=== PATIENT | male | born 1955 | race Caucasian/White ===

== ENCOUNTER 2024-08-05 16:14 | Outpatient (CLI) | payer MEDICARE, OTHER, SELFPAY ==
[2024-08-05 16:47] LABS: Basophils % 0.6 % (0.1-2.0); Eosinophils # 0.2 K/mm3 (0.0-0.4); Eosinophils % 3.6 % (0.1-12.0); Hematocrit 43.6 % (42.0-52.0); Hemoglobin 14.7 g/dL (14.1-18.0); Lymphocytes # 1.6 K/mm3 (0.7-4.5); Lymphocytes % 36.2 % (10-50); Mean Corpuscular HGB Conc 33.9 g/dL (31.8-35.4); Mean Corpuscular Hemoglobin 32.3 pg (27.0-31.2); Mean Corpuscular Volume 95.4 fl (80-94); Mean Platelet Volume 8.1 fl (7.4-10.4); Monocytes # 0.3 K/mm3 (0.1-1.0); Monocytes % 7.6 % (1.7-9.3); Neutrophils # 2.3 K/mm3 (1.8-7.8); Platelet Count 165 K/mm3 (142-424); Red Blood Count 4.56 M/mm3 (4.60-6.20); Red Cell Distribution Width 13.9 % (11.5-17.5); White Blood Count 4.5 K/mm3 (4.8-10.8)
[2024-08-05 17:09] LABS: Albumin Level 4.6 g/dl (3.5-5.0); Chloride 108 mmol/L (98-107); Sodium 143 mmol/L (136-145)
[2024-08-05 17:10] LABS: Potassium 4.4 mmoL/L (3.5-5.1)
[2024-08-05 17:12] LABS: Alanine Aminotransferase 58 U/L (12-78); Albumin/Globulin Ratio 1.7 (1.1-1.8); Anion Gap 13.4 mEq/L (5-15); Aspartate Amino Transferase 34 U/L (17-59); Blood Urea Nitrogen 26 mg/dl (9-20); Carbon Dioxide 26 mmol/L (22.0-30.0); Estimated Glomerular Filt Rate 75 ml/min (>60); GFR (African American) 90 ML/MIN (>60); Globulin 2.7 g/dL (1.3-3.2); Total Protein,Serum 7.3 g/dl (6.3-8.2)
[2024-08-05 17:13] LABS: Alkaline Phosphatase 51 U/L (38-126); Bilirubin,Total 0.6 mg/dl (0.2-1.3); Cholesterol 152 mg/dl (140-200); Glucose 122 mg/dl (74-100); HDL Cholesterol 38 mg/dl (40-60); Triglycerides 207 mg/dl (30-150); VLDL Cholesterol 41 mg/dL (0-40)
[2024-08-05 17:24] LABS: Direct LDL Cholesterol 71.91 mg/dL (100-129)
== END 2024-08-05 23:59 | disposition home or self-care (01) ==
LOC: LAB 16:18
PROVIDERS: PCP Internal Medicine; Visit Provider Internal Medicine
DX: R03.0 Elevated blood-pressure reading, without diagnosis of hypertension (principal); E78.5 Hyperlipidemia, unspecified
CPT/HCPCS: 36415; 80053; 80061; 85025

== ENCOUNTER 2024-09-02 14:10 | Outpatient (CLI) | payer MEDICARE, OTHER, SELFPAY ==
--- NOTE | 2024-09-02 14:12 | US_ITS ---
FINAL REPORT CLINICAL HISTORY: UTI COMPARISON: None FINDINGS: BLADDER ULTRASOUND: Pre and post void images of the bladder were obtained. The bladder measures 208 cc at capacity, with a postvoid residual of 128.3 cc, consistent with a moderate postvoid residual. No focal bladder mass is identified. Ureteral jets are seen. No significant prostate enlargement is identified. IMPRESSION: Moderate postvoid residual as described above. Reviewed, Interpreted and Dictated by Kamlesh Alberts III, MD Transcribed by Marjorie Askew Authenticated and [facility]
== END 2024-09-02 23:59 | disposition home or self-care (01) ==
LOC: RAD 14:12
PROVIDERS: PCP Internal Medicine; Visit Provider Urology
DX: N40.1 Benign prostatic hyperplasia with lower urinary tract symptoms (principal)
CPT/HCPCS: 76857

== ENCOUNTER 2024-11-05 08:30 | Day surgery (SDC) | payer MEDICARE, OTHER, SELFPAY ==
[2024-11-03 11:29] VITALS: BMI 37.6
[2024-11-05 08:52] VITALS: BP 152/85; PULSE 62; RESP 18; TEMP 36.2; O2SAT 99
[2024-11-05] MEDS: LIDOCAINE 2% UROJET 10ML 10 ML (09:20)
--- NOTE | 2024-11-05 09:21 | HMH.PROCNOTE ---
[facility] Procedure Note Date: 11/05/24 Time: 09:21 Procedure Note:: Chart review: The patient complains of bladder outlet obstruction. He is on Flomax. His postvoid residual urine is elevated at 128 on 09/12. He has nocturia x 2-4. He underwent Remer ablation of the prostate in 2023. The results are questionable to him. He is here for cystoscopy to further evaluate bladder outlet obstructio Preop diagnosis: Bladder outlet obstruction Postop diagnosis: Bladder outlet obstruction Operative note: The patient was brought to the cystoscopy suite he was prepped and draped using the clean technique. He underwent flexible cystoscopy. His anterior urethra is unremarkable. From the level of the verumontanum the patient has prostate obstruction grade 2. The bladder neck, however, with the surgery mentioned above is open. About two thirds of the prostatic urethra remains obstructed and contributes to his complaints. The bladder itself is finely trabeculated throughout. The bladder wall is [place] pink in color throughout. There is no evidence of bladder stone tumor hemorrhage or infection. The ureteral orifice ease are normal bilaterally with clear E flux of urine. The patient tolerated the procedure well. He is not emptying his bladder to completion so he might want to consider further prostate surgery.
[2024-11-05] MEDS: 0.9 % SODIUM CHLORIDE 1000ML 1,000 ML 999 ML IV (09:25)
[2024-11-05 09:30] VITALS: BP 141/93; PULSE 69; RESP 18; TEMP 36.1; O2SAT 100
== END 2024-11-05 09:40 | disposition home or self-care (01) ==
PROVIDERS: PCP Internal Medicine; Visit Provider Urology
PROC: 0TJB8ZZ Inspection of Bladder, Via Natural or Artificial Opening Endoscopic (ICD-10-PCS; CPT 52000; principal; 2024-11-05 09:30)
DX: N13.8 Other obstructive and reflux uropathy (principal); R35.1 Nocturia
CPT/HCPCS: 52000; J7030

== ENCOUNTER 2025-01-24 13:59 | Outpatient (CLI) | payer MEDICARE, OTHER, SELFPAY ==
[2025-01-25 08:12] LABS: PSA, Free 0.55 ng/mL; Prostate Specific Ag 1.6 ng/mL (0.0-4.0)
== END 2025-01-24 23:59 | disposition home or self-care (01) ==
LOC: LAB 14:00
PROVIDERS: PCP Internal Medicine; Visit Provider Urology
DX: R97.20 Elevated prostate specific antigen [PSA] (principal)
CPT/HCPCS: 36415; 84153; 84154

== ENCOUNTER 2025-05-02 14:13 | Outpatient (CLI) | payer MEDICARE, OTHER, SELFPAY ==
--- OUTSIDE RECORDS SUMMARY | 2025-05-02 13:07 | XMS_ITS | Continuity of Care Document ---
Author Name [facility] Organization [facility] Care Team Providers Care Annealer Helper Name Role Phone [facility] Unavailable Unavailable Problems Combined list of problems from Department of Defense and Veterans Affairs facilities. It does not include entries that were removed or entered in error. 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 DoD Vaccines Prophylactic Need Against Viral Diseases Inactive Condition DoD visit for: laboratory Inactive Condition DoD visit for: screening exam lipoid disorders Inactive Condition DoD visit for: screening exam malignant neoplasm prostate Inactive Condition DoD visit for: screening exam infectious diseases viral Inactive Condition DoD visit for: screening exam sickle-cell disease / trait Inactive Condition DoD Vaccines Prophylactic Need Against Bacterial Diseases Inactive Condition DoD visit for: ears / hearing exam Active Condition DoD visit for: services physical in-theatre Active Condition DoD visit for: screening exam cardiovascular disorders Active Condition DoD Vaccines Prophylactic Need Against Influenza Inactive Condition DoD ASSESSMENT OF PATIENT CONDITION WORK-RELATED Active Condition DoD visit for: screening exam Active Condition DoD visit for: occupational health / fitness exam Active Condition DoD BLEPHARITIS LEFT EYE Active Condition DoD visit for: administrative purpose Active Condition DoD visit for: services physical Active Condition pt cleared for mobilization . DoD Vaccines Prophylactic Need Against Td Active Condition DoD visit for: screening exam pulmonary tuberculosis Active Condition DoD Need For Vaccination Hepatitis B Active Condition DoD visit for: screening exam viral disease Active Condition DoD Administrative Evaluation Services Active Condition DoD Allergies, Adverse Reactions, Alerts Combined list of allergies from Department of Defense and Veterans Affairs facilities. It does not include entries that were removed or entered in error. Substance Category Reaction Severity Reaction type Status Date Reported Comments Source IODINE (IODINE) Drug allergy (disorder) Unknown active 01/29/2006 [facility] [place] Immunizations Combined list of available immunizations from the Department of Defense and Veterans Affairs facilities. Immunization Series Date Given Administered By Site Reaction Lot Number CVX Code Drug Senior Ui Developer Status Comments Source zoster vaccine, live 1 2011 Unknown, Provider [id number] Merck (MSD) complet ed zoster vaccine, live DoD anthrax vaccine 8 2011 [id number] [facility] complet ed anthrax vaccine DoD Influenza, seasonal, injectable, preservative free 1 2011 [id number] Unknown (UNK) comple t ed Influenza , seasonal, injectabl e, preservat carlos enrique free DoD influenza virus vaccine, whole virus 1 2010 FARHANA DUMONT [id number] 16 [employer], [employer]. (CS) complet ed influenza virus vaccine, whole virus DoD influenza virus vaccine, split virus (incl. purified surface antigen)-reti red CODE 1 2008 [id number] 15 Unknown (UNK) complet ed influenza virus vaccine, split virus (incl. purified surface antigen)- retired CODE DoD influenza virus vaccine, split virus (incl. purified surface antigen)-reti red CODE 1 2008 [id number] 15 Unknown (UNK) complet ed influenza virus vaccine, split virus (incl. purified surface antigen)- retired CODE DoD anthrax vaccine [id number] [facility] ([facility]) complet ed anthrax vaccine DoD hepatitis B vaccine, adult dosage 3 2008 [id number] 43 SmithKline (SKB) complet ed hepatitis B vaccine, adult dosage DoD hepatitis B vaccine, adult dosage 2 2007 [id number] 43 [employer] (SKB) complet ed hepatitis B vaccine, adult dosage DoD tetanus toxoid, reduced diphtheria toxoid, and acellular pertu is vaccine, adsorbed 1 2007 [id number] Sanofi Pasteur (PMC) complet ed tetanus toxoid, reduced diphtheri a toxoid, and acellular pertussis vaccine, adsorbed DoD hepatitis B vaccine, adult dosage 1 2006 [id number] 43 SmithKline (SKB) complet ed hepatitis B vaccine, adult dosage DoD influenza virus vaccine, live, attenuated, for intranasal use 1 2006 [id number] [employer]. (MED) complet ed influenza virus vaccine, live, attenuate d, for intranasa l use DoD anthrax vaccine 6 2005 [id number] [facility]) complet ed anthrax vaccine DoD anthrax vaccine 5 2003 UNK 24 Unknown (UNK) comple t ed anthrax vaccine DoD anthrax vaccine 4 2003 UNK 24 Unknown (UNK) comple t ed anthrax vaccine DoD influenza virus vaccine, split virus (incl. purified surface antigen)-reti red CODE 1 2003 UNK 15 Unknown (UNK) comple t ed influenza virus vaccine, split virus (incl. purified surface antigen)- retired CODE DoD hepatitis A vaccine, adult dosage 2 2003 UNK 52 Unknown (UNK) comple t ed hepatitis A vaccine, adult dosage DoD anthrax vaccine 3 2002 UNK 24 Unknown (UNK) comple t ed anthrax vaccine DoD anthrax vaccine 2 2002 UNK 24 Unknown (UNK) comple t ed anthrax vaccine DoD influenza virus vaccine, split virus (incl. purified surface antigen)-reti red CODE 0 2002 UNK 15 Sanofi Pasteur ([facility]) complet ed influenza virus vaccine, split virus (incl. purified surface antigen)- retired CODE DoD anthrax vaccine [id number] [facility] ([facility]) complet ed anthrax vaccine DoD meningococcal polysaccharid e vaccine (MPSV4) 0 2002 [id number] 32 Sanofi Pasteur ([facility]) complet ed meningoco ccal polysacch aride vaccine (MPSV4) DoD yellow fever vaccine 0 2002 [id number] Sanofi Pasteur ([facility]) complet ed yellow fever vaccine DoD typhoid Vi capsular polysaccharid e vaccine 0 2002 [id number] Sanofi Pasteur ([facility]) complet ed typhoid Vi capsular polysacch aride vaccine DoD hepatitis A vaccine, adult dosage 1 1998 UNK 52 Unknown (UNK) comple t ed hepatitis A vaccine, adult dosage DoD measles, mumps and rubella virus vaccine 0 1997 UNK 03 Unknown (UNK) comple t ed measles, mumps and rubella virus vaccine DoD tetanus and diphtheria toxoids, adsorbed, preservative free, for adult use (2 Lf of tetanus toxoid and 2 Lf of diphtheria toxoid) 0 1997 UNK 09 Unknown (UNK) comple t ed tetanus and diphtheri a toxoids, adsorbed, preservat carlos enrique free, for adult use (2 Lf of tetanus toxoid and 2 Lf of diphtheri a toxoid) DoD poliovirus vaccine, inactivated 0 1997 UNK 10 Unknown (UNK) comple t ed polioviru s vaccine, inactivat ed DoD Encounters Combined list of: 1) Encounters from Department of Veterans Affairs facilities going backup to the last 18 months, not all VA inpatient encounters are included; 2) Encounters from the Department of Defense facilities going backup to 280 months. Location Location Details Encounter Type Encounter Number Reason For Visit Attending Provider ADM Date DC Date Status Disposition Source [facility] IRR/SRP) OUTPATIENT [id number] IRR INES BURNS 06/13 Released w/o Limitations [employer]([facility] IRR/SRP ) [employer]([facility] H Irr/Immun ization) OUTPATIENT [id number] imms ZANA MUNOZ 06/13 Released w/o Limitations [employer]([facility] Irr/Imm unizati on) [employer]([facility] H Irr/Immun ization) OUTPATIENT [id number] imm ZANA MUNOZ 06/15 Released w/o Limitations [facility] Irr/Imm unizati on) [facility] [place]([facility]) OUTPATIENT [id number] SKYLER WOO 08/08 Released w/o Limitations [facility] [place]([facility]) [facility] [place]) OUTPATIENT [id number] ANDREZ MUNROE 09/05 Released w/o Limitations [facility] [place]([facility]) [employer] [facility] IRR/SRP) OUTPATIENT [id number] IRR/RET CIARRA MULLEN 08/07 Released w/o Limitations [employer]([facility] IRR/SRP ) [employer]([facility] IRR/SRP) OUTPATIENT [id number] LUCINDA Garzon 08/07 Released w/o Limitations [facility] IRR/SRP ) [facility](EKG ) OUTPATIENT [id number] SAMPSON GROVES 08/07 Released w/o Limitations [employer](E KG) [employer]([facility] Physical Exam) OUTPATIENT [id number] OVER 42/IRR SHARLA GONZALEZ 08/10 Released w/o Limitations [employer](R MC Physica l Exam) [facility](C Ambulator y) OUTPATIENT [id number] EMILIAXI MCGREGOR Benjamin 08/10 Released w/o Limitations [employer](T MC Ambulat ory) [facility] C IRR/SRP) OUTPATIENT [id number] FOLLOW UP/RET/ IRR MARYEVELIN HOLDEN Mariscal 08/10 Released w/o Limitations [employer](M [facility] IRR/SRP ) [employer]AD[employer] Jose([employer]P-Pr e&Post Deploymen t) OUTPATIENT [id number] Notes Entered by: TOBIN JACINTO 28 Jul 2012 1415 ------- ------- ------- ------- -- [employer] UPDATE DAVION ZUNIGA 07/28 Released w/o Limitations [employer] Jose(MRP- Pre&Pos t Deploym ent) MADAN Jose(SRP-He aring Conservat ion) OUTPATIENT [id number] Notes Entered by: KAEL DELAROSA 28 Jul 2012 1503 ------- ------- ------- ------- -- Hearing test KAEL DELAROSA 07/28 Released w/o Limitations [employer] Jose(SRP- Hearing Conserv ation) MADAN Jose([facility]-Im munizatio ns) OUTPATIENT [id number] Notes Entered by: ANGELIQUE THOMPSON 28 Jul 2012 1604 ------- ------- ------- ------- -- HERE FOR IMMUNIZ ATIONS MICHELLE THOMPSON 07/28 Released w/o Limitations [employer] Jose(MRP- Immuniz ations) [employer]AD[employer] Jose(MRP-Im munizatio ns) OUTPATIENT [id number] Notes Entered by: ANGELIQUE THOMPSON 30 Jul 2012 0907 ------- ------- ------- ------- -- HERE FOR LABS MICHELLE THOMPSON 07/30 Released w/o Limitations [employer] Jose(MRP- Immuniz ations) [facility]) OUTPATIENT [id number] RENAE MARAVILLA 07/30 Released w/o Limitations [facility]) [facility] Jose(Immuni zation Clinic) OUTPATIENT [id number] Notes Entered by: BERNA YANCEY 31 Jul 2012 0813 ------- ------- ------- ------- -- ROSITA Matute 07/31 Released w/o Limitations [employer] Jose(Immu nizatio n Clinic) Procedures Combined list of: 1) Procedures from Department of Veterans Affairs facilities going back up to thelast 18 months, not all VA non-surgical procedures are included; 2) All procedures from the Department of Defense facilities. Procedure Procedure Type Code Date Perfomer Comments Sourc e SKIN TEST; TUBERCULOSIS, TIN E TEST 03/11/2003 [facility] YELLOW FEVER VACCINE, LIVE, FOR SUBCUTANEOUS USE 11/03/2002 [facility] ELECTROCARDIOGRAM, ROUTINE ECG WITH AT LEAST 12 LEADS; WITH INTERPRETATION AND REPORT 08/07/2009 [facility] INFLUENZA VIRUS VACCINE, TRIVALENT (IIV3), SPLIT VIRUS, 0.5 ML DOSAGE, FOR INTRAMUSCULAR USE 08/07/2009 [facility] VIS FUNCT SCREEN,AUTOMAT/SEMI-AUTOMAT BILAT QUANT DETERM VISUAL ACUITY,OCULAR ALIGN,COLOR VISION,PSEUDOISOCHROMAT PLATES,& FIELD VIS (MAY INC ALL/SOME SCRN DETERM FOR CONTRAST SENSITIV,VIS UND GLARE) 08/07/2009 DoD TETANUS, DIPHTHERIA TOXOIDS AND ACELLULAR PERTUSSIS VACCINE (TDAP), WHEN ADMINISTERED TO INDIVIDUALS 7 YEARS OR OLDER, FOR INTRAMUSCULAR USE 06/13/2008 [facility] COLLECTION OF VENOUS BLOOD B Y VENIPUNCTURE 06/13/2008 DoD HEALTH AND BEHAVIOR ASSESS (EG, HEALTH-FOC CLIN INTERVIEW, BEHAVIORAL OBSERVATIONS, PSYCHOPHYSICOLOGICAL MON, HEALTH-ORIENTED QUESTIONNAIRES), EACH 15 MIN [id number] WITH THE PATIENT; RE-ASSESS 02/14/2003 [facility] PSYCHOLOGICAL TESTING (INCLUDES PSYCHODIAGNOSTIC ASSESSMENT OF PERSONALITY PSYCHOPATHOLOGY, EMOTIONALITY, INTELLECTUAL ABILITIES, EG, WAIS-R, RORSCHACH, MMPI) WITH INTERPRETATION AND REPORT, PER HOUR 02/07/2003 DoD INTERPRETATION OR EXPLANATIO N OF RESULTS OF PSYCHIATRIC, OTH MEDICAL EXAMS/PROCEDURES, OR OTH ACCUMULATED DATA TO FAMILY OR OTH RESPONSIBLE PERSONS,OR ADVISING THEM HOW TO ASSIST PATIENT 02/07/2003 DoD IMMUNIZATION ADMINISTRATION (INCLUDES PERCUTANEOUS, INTRADERMAL, SUBCUTANEOUS, OR INTRAMUSCULAR INJECTIONS); 1 VACCINE (SINGLE OR COMBINATION VACCINE/TOXOID) 07/31/2012 DoD FITTING OF SPECTACLES, EXCEP T FOR APHAKIA; MONOFOCAL 07/30/2012 Do D INFLUENZA VIRUS VACCINE, TRIVALENT (IIV3), SPLIT VIRUS, 0.5 ML DOSAGE, FOR INTRAMUSCULAR USE 07/28/2012 DoD AUDIOMETRIC TESTING OF GROUPS 07/28/2012 DoD IMMUNIZATION ADMINISTRATION (INCLUDES PERCUTANEOUS, INTRADERMAL, SUBCUTANEOUS, OR INTRAMUSCULAR INJECTIONS); 1 VACCINE (SINGLE OR COMBINATION VACCINE/TOXOID) 06/15/2009 DoD PURE TONE AUDIOMETRY (THRESHOLD); AIR ONLY 06/15/2009 DoD INDIVIDUAL PSYCHOTHERAPY, INSIGHT ORIENTED, BEHAVIOR MODIFYING AND/OR SUPPORTIVE, IN AN OFFICE OR OUTPATIENT FACILITY, APPROXIMATELY 20 TO 30 MINUTES [id number] WITH THE PATIENT 05/29/2009 DoD IMMUNIZATION ADMINISTRATION (INCLUDES PERCUTANEOUS, INTRADERMAL, SUBCUTANEOUS, OR INTRAMUSCULAR INJECTIONS); EACH ADDITIONAL VACCINE (SINGLE OR COMBINATION VACCINE/TOXOID) 02/14/2009 DoD OSTEOPATHIC MANIPULATIVE TREATMENT (OMT); 1-2 BODY REGIONS INVOLVED 02/07/2006 DoD OSTEOPATHIC MANIPULATIVE TREATMENT (OMT); 7-8 BODY REGIONS INVOLVED 02/04/2006 [facility] PHYSICAL THERAPY RE-EVALUATION 05/24/2004 DoD REMOVAL OF SUTURES UNDER ANESTHESIA (OTHER THAN LOCAL), SAME SURGEON 05/24/2004 [facility] ARTHROSCOPY OF KNEE 05/17/2004 D oD THERAPEUTIC PROCEDURE, 1 OR MORE AREAS, EACH 15 MINUTES; THERAPEUTIC EXERCISES TO DEVELOP STRENGTH AND ENDURANCE, RANGE OF MOTION AND FLEXIBILITY 05/17/2004 DoD THERAPEUTIC PROCEDURE, 1 OR MORE AREAS, EACH 15 MINUTES; GAIT TRAINING (INCLUDES STAIR CLIMBING) 05/14/2004 DoD ELECTROCARDIOGRAM, ROUTINE ECG WITH AT LEAST 12 LEADS; WITH INTERPRETATION AND REPORT 05/14/2004 DoD Social History Combined list of available smoking, tobacco, and other social history from Department of Defense and Veterans Affairs facilities. Social History Type Response Date Comment Sourc e This section is an empty social history section. DoD
[2025-05-03 12:13] LABS: Testosterone,Total 362 ng/dL (264-916)
== END 2025-05-02 23:59 | disposition home or self-care (01) ==
LOC: LAB 14:14
PROVIDERS: PCP Internal Medicine; Visit Provider Urology
DX: N40.1 Benign prostatic hyperplasia with lower urinary tract symptoms (principal); R53.83 Other fatigue; N32.81 Overactive bladder; N13.8 Other obstructive and reflux uropathy
CPT/HCPCS: 36415; 84270; 84403

== ENCOUNTER 2025-06-08 14:10 | Outpatient (CLI) | payer MEDICARE, OTHER, SELFPAY ==
--- OUTSIDE RECORDS SUMMARY | 2025-06-08 13:11 | XMS_ITS | Continuity of Care Document ---
Author Name [facility] Organization [facility] Care Team Providers Care Claims Investigator Name Role Phone [facility] Unavailable Unavailable Problems [...] Site Reaction Lot Number CVX Code Drug Disc Pad Grinding Machine Feeder Status Comments Source zoster vaccine, live 1 2011 Unknown, Provider [id number] Merck (MSD) complet ed zoster vaccine, live DoD anthrax vaccine 8 2011 [id number] [facility] ([place]) complet ed anthrax vaccine DoD Influenza, seasonal, injectable, preservative free 1 2011 [id number] Unknown (UNK) comple t ed Influenza , seasonal, injectabl e, preservat carlos enrique free DoD influenza virus vaccine, whole virus 1 2010 FARHANA DUMONT [id number] 16 [employer]. (CS) complet ed influenza virus vaccine, whole virus DoD influenza virus vaccine, split virus (incl. purified surface antigen)-reti red CODE 1 2008 [id number] 15 Unknown (UNK) complet ed influenza virus vaccine, split virus (incl. purified surface antigen)- retired CODE DoD influenza virus vaccine, split virus (incl. purified surface antigen)-reti red CODE 1 2008 [id number] 15 Unknown (UNK) complet ed influenza virus vaccine, split virus (incl. purified surface antigen)- retired CODE DoD anthrax vaccine 7 2008 [id number] 24 [facility] ([place]) complet ed anthrax vaccine DoD hepatitis B vaccine, adult dosage 3 2008 [id number] 43 [employer]Kline (SKB) complet ed hepatitis B vaccine, adult dosage DoD hepatitis B vaccine, adult dosage 2 2007 [id number] 43 [employer] (SKB) complet ed hepatitis B vaccine, adult dosage DoD tetanus toxoid, reduced diphtheria toxoid, and acellular pertu is vaccine, adsorbed 1 2007 [id number] Sanofi Pasteur (PMC) complet ed tetanus toxoid, reduced diphtheri a toxoid, and acellular pertussis vaccine, adsorbed DoD hepatitis B vaccine, adult dosage 1 2006 [id number] 43 [employer] (SKB) complet ed hepatitis B vaccine, adult dosage DoD influenza virus vaccine, live, attenuated, for intranasal use 1 2006 [id number] [employer] (MED) complet ed influenza virus vaccine, live, attenuate d, for intranasa l use DoD anthrax vaccine 6 2005 [id number] 24 [facility] ([place]) complet ed anthrax vaccine DoD anthrax vaccine [...] CODE 0 2002 UNK 15 Sanofi Pasteur ([facility]) complet ed influenza virus vaccine, split virus (incl. purified surface antigen)- retired CODE DoD anthrax vaccine 1 2002 [id number] 24 [facility] ([place]) complet ed anthrax vaccine DoD meningococcal polysaccharid e vaccine (MPSV4) 0 2002 [id number] Sanofi Pasteur ([facility]) complet ed meningoco ccal polysacch aride vaccine (MPSV4) DoD yellow fever vaccine 0 2002 [id number] 37 Sanofi Pasteur ([facility]) complet ed yellow fever vaccine DoD typhoid Vi capsular polysaccharid e vaccine 0 2002 [id number] Sanofi Pasteur ([facility]) complet ed typhoid Vi capsular [...] ADM Date DC Date Status Disposition Source [facility] IRR/SRP) OUTPATIENT [id number] IRR INES BURNS 06/13 Released w/o Limitations [employer]([facility] IRR/SRP ) [employer](MAC H Irr/Immun ization) OUTPATIENT [id number] imms ZANA MUNOZ 06/13 Released w/o Limitations [employer](M ACH Irr/Imm unizati on) [employer](MAC H Irr/Immun ization) OUTPATIENT [id number] imm ZANA MUNOZ 06/15 Released w/o Limitations [facility](M ACH Irr/Imm unizati on) Rosemary ONEILL [place]) OUTPATIENT [id number] SKYLER WOO 08/08 Released w/o Limitations Rosemary ONEILL [place]) Rosemary ONEILL [place] OUTPATIENT [id number] ANDREZ MUNROE 09/05 Released w/o Limitations Rosemary ONEILL [place]) [employer]([facility] IRR/SRP) OUTPATIENT [id number] IRR/RET CIARRA MULLEN 08/07 Released w/o Limitations [employer]([facility] IRR/SRP ) [employer]([facility] IRR/SRP) OUTPATIENT [id number] LUCINDA Garzon 08/07 Released w/o Limitations [facility] IRR/SRP ) [facility](EKG ) OUTPATIENT [id number] SAMPSON GROVES 08/07 Released w/o Limitations [employer](E KG) [employer] [place]am[place] OUTPATIENT [id number] OVER 40/IRR SHARLA GONZALEZ 08/10 Released w/o Limitations [employer](R MC Physica l Exam) [facility](C Ambulator y) OUTPATIENT [id number] EMILIAXI MCGREGOR Benjamin 08/10 Released w/o Limitations [employer](T MC Ambulat ory) [facility] C IRR/SRP) OUTPATIENT [id number] FOLLOW UP/RET/ IRR MARYEVELIN HOLDEN Mariscal 08/10 Released w/o Limitations [employer]([facility] IRR/SRP ) [employer]AD[employer] Jose([employer]P-Pr e&Post Deploymen t) OUTPATIENT [id number] Notes Entered by: TOBIN JACINTO 28 Jul 2012 1415 ------- ------- ------- ------- -- [employer] UPDATE DAVION ZUNIGA 07/28 Released w/o Limitations [employer]AD[employer] Jose(MRP- Pre&Pos t Deploym ent) [employer]AD[employer] Jose(SRP-He aring Conservat ion) OUTPATIENT [id number] Notes Entered by: KAEL DELAROSA 28 Jul 2012 1503 ------- ------- ------- ------- -- Hearing test KAEL DELAROSA 07/28 Released w/o Limitations [employer] Jose(SRP- Hearing Conserv ation) MADAN Jose([facility]-Im munizatio ns) OUTPATIENT [id number] Notes Entered by: ANGELIQUE THOMPSON 28 Jul 2012 1604 ------- ------- ------- ------- -- HERE FOR IMMUNIZ ATIONS MICHELLE THOMPSON 07/28 Released w/o Limitations [employer] Jose(MRP- Immuniz ations) [employer]AD[employer] Jose(MRP-Im munizatio ns) OUTPATIENT [id number] Notes Entered by: ANGELIQUE THOMPSON 30 Jul 2012 0907 ------- ------- ------- ------- -- HERE FOR LABS MICHELLE THOMPSON 07/30 Released w/o Limitations Rosemary Mata, MADAN(MRP- Immuniz ations) [place] MADAN Giraldo([facility]) OUTPATIENT [id number] RENAE MARAVILLA 07/30 Released w/o Limitations [place] NINO Mata, MADAN([facility]) [place] NINO Mata, MADAN(Immuni zation Clinic) OUTPATIENT [id number] Notes Entered by: BERNA YANCEY 31 Jul 2012 0813 ------- ------- ------- ------- -- ROSITA Matute 07/31 Released w/o Limitations [place] NINO Mata, MADAN(Immu nizatio n Clinic) Procedures Combined list of: 1) Procedures from Department of Veterans Affairs facilities going back up to thelast 18 months, not all VA non-surgical procedures are included; 2) All procedures from the Department of Defense facilities. Procedure Procedure Type Code Date Perfomer Comments Sour e [employer] [facility] Fitting Bifocals (Not For Aphakia) [employer] Fitting Bifocals (Not For Aphakia) 00737 RENAE CARLIN [employer] [facility] Fitting Monofocals (Not For Aphakia) [employer] [facility] Fitting Monofocals (Not For Aphakia) 75411 RENAE CARLIN Determination Of Refractive State Determination Of Refractive State 28399 RENAE CARLIN Ophthalmological New Patient Start Comprehensive Care Ophthalmological New Patient Start Comprehensive Care 99874 RENAE CARLIN Immunization Administration One Vaccine Immunization Administration One Vaccine 55905 ROSITA TIDWELL Vaccines Vaccines 76023 ROSITA TIDWELL Zoster, Live; Series #: 1; .5 mL; SC; Right Arm; Mfg: MyMosa; Lot: [id number]; VIS given (Js: 07/25/2009) . [facility] Venipuncture Venipuncture 56513 MICHELLE THOMPSON [facility] Influenza Split Virus Vaccine Age 3+ Years Intramuscular MICHELLE THOMPSON [facility] Immunization Administration Each Additional Vaccine MICHELLE THOMPSON [facility] Immunization Administration One Vaccine Immunization Administration One Vaccine 86215 MICHELLE THOMPSON [facility] Audiometry Group Testing Audiometry Group Testing 23159 KAEL DELAROSA [facility] ECG 12-Lead With Interpretation And Report ECG 12-Lead With Interpretation And Report 18880 SAMPSON RODRIGUEZ [facility] Influenza Split Virus Vaccine Age 3+ Years Intramuscular LUCINDA PERES [facility] Immunization Administration One Vaccine Immunization Administration One Vaccine 65169 LUCINDA PERES [facility] Visual Function Screening Visual Function Screening 39988 ZANA MUNOZ [facility] Social Work Individual Outpatient Counseling 20-30 Minutes Social Work Individual Outpatient Counseling 20-30 Minutes 86937 DOIMNGO HATHAWAY [facility] Hepatitis B Vaccine (Active); 20 Years and Above ZANA MUNOZ [facility] Skin Test Anergy Tuberculin Intradermal Skin Test Anergy Tuberculin Intradermal 10967 ZANA MUNOZ [facility] Immunization Administration Each Additional Vaccine ZANA MUNOZ [facility] Tdap Vaccine Tdap Vaccine 33644 ZANA MUNOZ [facility] Immunization Administration One Vaccine Immunization Administration One Vaccine 06507 ZANA MUNOZ [facility] Venipuncture Venipuncture 75556 INES BURNS [facility] HEALTH AND BEHAVIOR ASSESS (EG, HEALTH-FOC CLIN INTERVIEW, BEHAVIORAL OBSERVATIONS, PSYCHOPHYSICOLOGICAL MON, HEALTH-ORIENTED QUESTIONNAIRES), EACH 15 MIN [id number] WITH THE PATIENT; RE-ASSESS [facility] PSYCHOLOGICAL TESTING (INCLUDES PSYCHODIAGNOSTIC ASSESSMENT OF PERSONALITY PSYCHOPATHOLOGY, EMOTIONALITY, INTELLECTUAL ABILITIES, EG, WAIS-R, RORSCHACH, MMPI) WITH INTERPRETATION AND REPORT, PER HOUR [facility] INTERPRETATION OR EXPLANATION OF RESULTS OF PSYCHIATRIC, OTH MEDICAL EXAMS/PROCEDURES, OR OTH ACCUMULATED DATA TO FAMILY OR OTH RESPONSIBLE PERSONS,OR ADVISING THEM HOW TO ASSIST PATIENT [facility] ELECTROCARDIOGRAM, ROUTINE ECG WITH AT LEAST 12 LEADS; WITH INTERPRETATION AND REPORT [facility] INFLUENZA VIRUS VACCINE, TRIVALENT (IIV3), SPLIT VIRUS, 0.5 ML DOSAGE, FOR INTRAMUSCULAR USE [facility] VIS FUNCT SCREEN,AUTOMAT/SEMI-AUT OMAT BILAT QUANT DETERM VISUAL ACUITY,OCULAR ALIGN,COLOR VISION,PSEUDOISOCHROMAT PLATES,& FIELD VIS (MAY INC ALL/SOME SCRN DETERM FOR CONTRAST SENSITIV,VIS UND GLARE) [facility] TETANUS, DIPHTHERIA TOXOIDS AND ACELLULAR PERTUSSIS VACCINE (TDAP), WHEN ADMINISTERED TO INDIVIDUALS 7 YEARS OR OLDER, FOR INTRAMUSCULAR USE [facility] COLLECTION OF VENOUS BLOOD BY VENIPUNCTURE [facility] IMMUNIZATION ADMINISTRATION (INCLUDES PERCUTANEOUS, INTRADERMAL, SUBCUTANEOUS, OR INTRAMUSCULAR INJECTIONS); 1 VACCINE (SINGLE OR COMBINATION VACCINE/TOXOID) [facility] FITTING OF SPECTACLES, EXCEPT FOR APHAKIA; MONOFOCAL [facility] INFLUENZA VIRUS VACCINE, TRIVALENT (IIV3), SPLIT VIRUS, 0.5 ML DOSAGE, FOR INTRAMUSCULAR USE [facility] AUDIOMETRIC TESTING OF GROUPS DoD IMMUNIZATION ADMINISTRATION (INCLUDES PERCUTANEOUS, INTRADERMAL, SUBCUTANEOUS, OR INTRAMUSCULAR INJECTIONS); 1 VACCINE (SINGLE OR COMBINATION VACCINE/TOXOID) [facility] PURE TONE AUDIOMETRY (THRESHOLD); AIR ONLY [facility] INDIVIDUAL PSYCHOTHERAPY, INSIGHT ORIENTED, BEHAVIOR MODIFYING AND/OR SUPPORTIVE, IN AN OFFICE OR OUTPATIENT FACILITY, APPROXIMATELY 20 TO 30 MINUTES [id number] WITH THE PATIENT [facility] IMMUNIZATION ADMINISTRATION (INCLUDES PERCUTANEOUS, INTRADERMAL, SUBCUTANEOUS, OR INTRAMUSCULAR INJECTIONS); EACH ADDITIONAL VACCINE (SINGLE OR COMBINATION VACCINE/TOXOID) [facility] OSTEOPATHIC MANIPULATIVE TREATMENT (OMT); 1-2 BODY REGIONS INVOLVED [facility] OSTEOPATHIC MANIPULATIVE TREATMENT (OMT); 7-8 BODY REGIONS INVOLVED [facility] PHYSICAL THERAPY RE-EVALUATION [facility] REMOVAL OF SUTURES UNDER ANESTHESIA (OTHER THAN LOCAL), SAME SURGEON [facility] ARTHROSCOPY OF KNEE [facility] THERAPEUTIC PROCEDURE, 1 OR MORE AREAS, EACH 15 MINUTES; THERAPEUTIC EXERCISES TO DEVELOP STRENGTH AND ENDURANCE, RANGE OF MOTION AND FLEXIBILITY [facility] THERAPEUTIC PROCEDURE, 1 OR MORE AREAS, EACH 15 MINUTES; GAIT TRAINING (INCLUDES STAIR CLIMBING) [facility] ELECTROCARDIOGRAM, ROUTINE ECG WITH AT LEAST 12 LEADS; WITH INTERPRETATION AND REPORT [facility] SKIN TEST; TUBERCULOSIS, ELBA TEST [facility] YELLOW FEVER VACCINE, LIVE, FOR SUBCUTANEOUS USE [facility] Social History Combined list of available smoking, tobacco, and other social history from Department of Defense and Veterans Affairs facilities. Social History Type Response Date Comment [facility] e This section is an empty social history section. DoD
[2025-06-08 17:17] LABS: Hematocrit 29.6 % (42.0-52.0); Hemoglobin 9.5 g/dL (14.1-18.0); Immature Granulocytes % 0.8 %; Mean Corpuscular HGB Conc 32.1 g/dL (31.8-35.4); Mean Corpuscular Hemoglobin 30.1 pg (27.0-31.2); Mean Corpuscular Volume 93.7 fl (80-94); Nucleated Red Blood Cells % 0 %; Platelet Count 213 K/mm3 (142-424); Red Blood Count 3.16 M/mm3 (4.60-6.20); Red Cell Distribution Width-SD 48.1 fL; White Blood Count 6.1 K/mm3 (4.8-10.8)
--- OUTSIDE RECORDS SUMMARY | 2025-06-09 12:01 | XMS_ITS | Clinical Summary ---
[facility] [address] [place] [address] Care Team Providers Care Clinical Team Lead Name Role Phone Mc Corbett MD Primary Care Provider [phone] Allergies Active Allergy Reactions Criticality Noted Date Comments Contrast Dye (Echo Or Unknown Ct/Mr) Itching 07/20/2021 Tuna Flavoring Agent (Non-Screening) Dizziness 10/18/2022 Medications melatonin 1 MG tablet Take 1 mg by mouth Daily. Active Naproxen Sodium 220 MG capsule 220 mg of opiate. Active finasteride (PROSCAR) 5 MG tabletIndication s:Benign prostatic hyperplasia with urinary frequency Take 1 tablet by mouth Daily. 90 tablet 4 2 Active Additional Information Patient not taking.Reported on 12/29/2023 tamsulosin (FLOMAX) 0.4 MG capsule 24 hr capsuleIndicatio ns:Benign prostatic hyperplasia with urinary frequency Take 2 capsules by mouth Daily. 180 capsule 4 2 Active Additional Information Patient not taking.Reported on 12/29/2023 Active Problems Problem Noted Date Diagnosed Date Benign prostatic hyperplasia with lower urinary tract symptoms 08/28/2023 Prostate cancer screening 07/19/2021 Urinary urgency 07/19/2021 Immunizations Immunization Administration Dates Next Due Flu Vaccine Intradermal Quad 18-64YR 08/18/2018 Hepatitis A 10/06/2018 Family History Medical History Relation Name Comments Lung cancer Father Breast cancer Mother Relation Name Status Comments Father Mother Social History Tobacco Use Types Packs/Day Years Used Date Smoking Tobacco: Never Passive Smoke Exposure: Never Smokeless Tobacco: Never Tobacco Cessation:Counseling Given: Not Answered Alcohol Use Standard Drinks/Week Comments Defer 0 (1 standard drink = 0.6 oz pur e alcohol) Abuse Screen Answer Date Recorded Unsafe at Home or Work/School Not on file Feels Threatened by Someone? Not on file 09/2023 Does Anyone Keep You from Co ntacting Others or Doint Things Outside the Home? Not on file 07/31/2023 Physical Sign of Abuse Present Not on file 1 Housing Stability Answer Date Recorded Current Living Arrangements Not on file 07/20 Potentially Unsafe Housing Conditions Not on marissa e 07/31/2023 Family and Community Support Answer Tomy e Recorded Help with Day-to-Day Activities Not on file 07/31/2023 Lonely or Isolated Not on file 07/31/2023 Employment Answer Date Recorded Do you want help finding or keeping work or a kvng b? Not on file 07/31/2023 Disabilities Answer Date Recorded Concentrating, Remembering, or Making Decisions Difficulty Not on file 07/31/2023 Doing Errands Independently Difficulty Not on fi le 07/31/2023 Education Answer Date Recorded Help with school or training? Not on file Preferred Language Not on file 07/31/2023 Sex and Gender Information Value Date Recorded Sex Assigned at Not on file Legal Sex Male 6:03 PM EDT Gender Identity Not on file Sexual Orientation Not on file Last Filed Vital Signs Vital Sign Reading Time Taken Comments Blood Pressure 146/88 07/17/2023 2:52 PM EDT Pulse 65 07/17/2023 2:52 PM EDT Temperature - - Respiratory Rate 16 12/29/2023 8:40 AM EDT Oxygen Saturation 98% 07/17/2023 2:52 PM EDT Inhaled Oxygen Concentration - - Weight 124 kg (273 lb) 12/29/2023 8:40 AM EDT Height 180.3 cm (5' 11 ) 12/29/2023 8:40 AM EDT Body Mass Index 38.08 12/29/2023 8:40 AM EDT Plan of Treatment Health Maintenance Due Date Last Done Comments TDAP/TD VACCINES (1 - Tdap) 1976 COLOGUARD 2002 COLON CANCER SCREENING 5 YEAR SIGMOIDOSCOPY 2002 COLONOSCOPY 2002 [address]OR[address]AL CANCER SCREENING 2002 CT COLONOGRAPHY 2002 FECAL OCCULT BLOOD TEST 2002 FIT Testing (1 year) 2002 Pneumococcal Vaccine 50+ (1 of 1 - PCV) 12/28/2007 ANNUAL WELLNESS VISIT 04/02/2021 HEPATITIS C SCREENING 04/02/2021 ZOSTER VACCINE (2 of 2) 02/02/2022 12/08/2021 AAA SCREEN ONCE 2022 COVID-19 Vaccine ( season) 2024 INFLUENZA VACCINE 07/20/2025 08/18/2018 Insurance MEDICARE A & B [facility] Care Teams Clinical Team Lead Relationship Specialty Start Date End Date Mc Cobrett MD [address] [facility] [address] [place] [address] PCP - General Internal Medicine 07/08/23
== END 2025-06-08 23:59 | disposition home or self-care (01) ==
LOC: LAB.DROPOF 06-09 11:59
PROVIDERS: PCP Internal Medicine; Visit Provider Internal Medicine
DX: D64.9 Anemia, unspecified (principal)
CPT/HCPCS: 85025

== ENCOUNTER 2025-06-24 12:47 | Outpatient (CLI) | payer MEDICARE, OTHER, SELFPAY ==
--- OUTSIDE RECORDS SUMMARY | 2025-06-24 12:50 | XMS_ITS | Clinical Summary ---
Author Organization [facility] Address [address] [place] [address] Care Team Providers Care Education And Outreach Coordinator Name Role Phone Mc Corbett MD Primary Care Provider [phone] Allergies Active Allergy Reactions Criticality Noted Date [...] 07/20/2025 08/18/2018 Insurance MEDICARE A & B [facility] Care Teams Education And Outreach Coordinator Relationship Specialty Start Date End Date Mc Corbett MD [address] [facility] [address] [place] [address] PCP - General Internal Medicine 07/08/23
[2025-06-24 13:29] LABS: Blood Urea Nitrogen 15 mg/dl (9-20); Creatinine,Serum 0.90 mg/dl (0.66-1.25); Estimated Glomerular Filt Rate 84 ml/min (>60); GFR (African American) 102 ML/MIN (>60)
--- NOTE | 2025-06-24 13:45 | CT_ITS ---
FINAL REPORT TECHNIQUE: Pre-and postcontrast axial imaging of the abdomen and pelvis was obtained.This study was performed with techniques to keep radiation doses as low as reasonably achievable, (ALARA). Individualized dose reduction technique using automated exposure control or adjustment of mA and/or kV according to the patient's size were employed. 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 Fatty infiltration of the liver is present without a focal abnormality. The gallbladder is present. The spleen, left adrenal gland, and pancreas are unremarkable. There is no normal right adrenal gland seen in the right suprarenal region, however there is a large mass measuring 11.2 x 12.4 cm in size. Noncontrast images demonstrate increased density within this mass, without enhancement postcontrast. This likely represents a large adrenal hematoma. Along the medial aspect of this mass there are multiple embolic coils. The right kidney is slightly displaced inferiorly. There is no hydronephrosis or renal mass identified. The right perinephric region displays what is likely hematoma in the pararenal fascia. There is no hydronephrosis or solid renal mass. On precontrast imaging, no renal stones are identified. Diverticulosis is present without evidence of diverticulitis. There is no lymphadenopathy or ascites. The pelvic organs and pelvic portions of the GI tract, including the appendix, are within normal limits. There is no lymphadenopathy or ascites. No acute osseous abnormalities identified. There is a right inguinal hernia present containing the lateral anterior bladder wall. IMPRESSION: 1. The right adrenal gland is not visualized, and there is a large nonenhancing mass present in the suprarenal lesion, 11.2 x 12.4 cm in size, that likely represents a large right adrenal hematoma. There also appears to be a right paranephric opacity, that likely represents hemorrhage in the pararenal fascia. Multiple embolism coils are noted just superior to the right kidney. 2. Recommend follow-up CT to ensure resolution, however no acute hemorrhage is identified on the current examination. Reviewed, Interpreted and Dictated by Stefanie Bee MD Transcribed by Marjorie Askew Authenticated and . [facility]
[2025-06-24] MEDS: SODIUM CHLORIDE 0.9% 10ML SYR (RAD ONLY) 10 ML IV (14:48)
[2025-06-24] MEDS: IOPAMIDOL-370 (76%);100ML BOTTLE 75 ML IV (14:48)
== END 2025-06-24 23:59 | disposition home or self-care (01) ==
LOC: RAD 12:48
PROVIDERS: PCP Internal Medicine; Visit Provider Urology
DX: E27.9 Disorder of adrenal gland, unspecified (principal); K68.3 Retroperitoneal hematoma; N45.1 Epididymitis; R93.5 Abnormal findings on diagnostic imaging of other abdominal regions, including retroperitoneum
CPT/HCPCS: 36415; 74178; 82565; 84520; Q9967

== ENCOUNTER 2025-06-27 15:45 | Outpatient (CLI) | payer MEDICARE, OTHER, SELFPAY ==
[2025-06-27 17:17] LABS: Hematocrit 35.3 % (42.0-52.0); Hemoglobin 11.7 g/dL (14.1-18.0); Immature Granulocytes % 0.3 %; Mean Corpuscular HGB Conc 33.1 g/dL (31.8-35.4); Mean Corpuscular Hemoglobin 31.6 pg (27.0-31.2); Mean Corpuscular Volume 95.4 fl (80-94); Nucleated Red Blood Cells % 0 %; Platelet Count 198 K/mm3 (142-424); Red Blood Count 3.70 M/mm3 (4.60-6.20); Red Cell Distribution Width-SD 50.6 fL; White Blood Count 3.6 K/mm3 (4.8-10.8)
[2025-06-27 19:51] LABS: Chloride 107 mmol/L (98-107); Potassium 4.4 mmoL/L (3.5-5.1); Sodium 141 mmol/L (136-145)
[2025-06-27 19:54] LABS: Anion Gap 11.4 mEq/L (5-15); Blood Urea Nitrogen 18 mg/dl (9-20); Calcium 9.0 mg/dl (8.4-10.2); Carbon Dioxide 27 mmol/L (22.0-30.0); Creatinine,Serum 1.00 mg/dl (0.66-1.25); Estimated Glomerular Filt Rate 75 ml/min (>60); GFR (African American) 90 ML/MIN (>60); Glucose 93 mg/dl (74-100)
--- OUTSIDE RECORDS SUMMARY | 2025-06-28 10:53 | XMS_ITS | Clinical Summary ---
[facility] [address] [place] [address] Care Team Providers Care Ice Puller Name Role Phone Mc Corbett MD Primary Care Provider [phone] Allergies Active Allergy Reactions Criticality Noted Date [...] SCREEN ONCE 2022 COVID-19 Vaccine ( season) 2025 INFLUENZA VACCINE 07/20/2025 08/18/2018 Insurance MEDICARE A & B [facility] Care Teams Ice Puller Relationship Specialty Start Date End Date Mc Corbett MD [address] [facility] [address] [place] [address] PCP - General Internal Medicine 07/08/23
== END 2025-06-27 23:59 ==
LOC: LAB.DROPOF 06-28 10:40
PROVIDERS: PCP Internal Medicine; Visit Provider Internal Medicine
DX: N45.1 Epididymitis (principal); D62 Acute posthemorrhagic anemia; S36.892A Contusion of other intra-abdominal organs, initial encounter; K59.00 Constipation, unspecified
CPT/HCPCS: 80048; 85025

== ENCOUNTER 2025-07-25 14:20 | Outpatient (CLI) | payer MEDICARE, OTHER, SELFPAY ==
[2025-07-25 17:58] LABS: Hematocrit 39.3 % (42.0-52.0); Hemoglobin 12.5 g/dL (14.1-18.0); Immature Granulocytes % 0.3 %; Mean Corpuscular HGB Conc 31.8 g/dL (31.8-35.4); Mean Corpuscular Hemoglobin 30.4 pg (27.0-31.2); Mean Corpuscular Volume 95.6 fl (80-94); Nucleated Red Blood Cells % 0 %; Platelet Count 165 K/mm3 (142-424); Red Blood Count 4.11 M/mm3 (4.60-6.20); Red Cell Distribution Width-SD 48.2 fL; White Blood Count 3.7 K/mm3 (4.8-10.8)
--- OUTSIDE RECORDS SUMMARY | 2025-07-26 01:43 | XMS_ITS | Encounter Summary ---
Author Organization [facility] Address [address] [place] [address] Care Team Providers Care Mold Closer Helper Name Role Phone Unavailable Primary Care Provider Unavailabl e Reason for Referral * Imaging (Routine) - Pending Review Specialty Diagnoses / Procedures Referred By Yang clemente Referred To Contact Radiology Diagnoses Retroperitoneal bleed Procedures CT Renal Mass w and wo IV Contrast Deyvi Grier MD [address] [address] Phone: tel: fax: Referral ID Status Reason Start Date Expiration Date V isits Requested Visits Authorized [id number] Pending Review 07/19/2025 01/18/2027 1 1 Encounter Details Date Type Department Care Team (Late st Contact Info) Description 07/19/[address] [facility] Urology [address] [place] [address] Deyvi Grier MD [address] [address] Retroperitoneal bleed (Primary Dx) Social History Tobacco Use Types Packs/Day Years Used Date Smoking Tobacco: Never Assessed Sex and Gender Information Value Date Recorded Sex Assigned at Not on file Legal Sex Male 2:26 PM EDT Gender Identity Not on file Sexual Orientation Not on file documented as of this encounter Plan of Treatment Scheduled Orders Name Type Priority Associated Diagnoses Orde r Schedule CT Renal Mass w and wo IV Contrast Imaging Routine Retroperitoneal bleed Expected: 10/18/2025, Expires: 01/20/2027 Basic Metabolic Panel, Plasma Lab Routine Retroperitoneal bleed Expected: 10/18/2025, Expires: 01/20/2027 documented as of this encounter Visit Diagnoses Diagnosis Retroperitoneal bleed- Primary Unspecified hemorrhage documented in this encounter
--- OUTSIDE RECORDS SUMMARY | 2025-07-26 01:43 | XMS_ITS | Clinical Summary ---
[facility] [address] [place] [address] Care Team Providers Care Molding Cutter Name Role Phone Mc Corbett MD Primary Care Provider [phone] Allergies Active Allergy Reactions Criticality Noted Date [...] 2) 02/02/2022 12/08/2021 AAA SCREEN ONCE 2022 INFLUENZA VACCINE 05/20/2025 08/18/2018 COVID-19 Vaccine ( season) 2025 Insurance MEDICARE A & B [facility] Care Teams Molding Cutter Relationship Specialty Start Date End Date Mc Corbett MD [address] [facility] [address] [place] [address] PCP - General Internal Medicine 07/08/23
--- OUTSIDE RECORDS SUMMARY | 2025-07-26 01:43 | XMS_ITS | Encounter Summary ---
Author Organization Healthcare Address [address] [place] [address] Care Team Providers Care Envelope Addresser Name Role Phone Unavailable Primary Care Provider Unavailabl e Encounter Details Date Type Department Care Team (Late st Contact Info) Description 07/13/2025 Telephone [facility] [address] [place] [address] Social History Tobacco Use Types Packs/Day Years Used Date Smoking Tobacco: Never Assessed Sex and Gender Information Value Date Recorded Sex Assigned at Not on file Legal Sex Male 2:26 PM EDT Gender Identity Not on file Sexual Orientation Not on file documented as of this encounter Miscellaneous Notes * Telephone Encounter - Gris Bueno - 07/18/2025 11:59 AM EDT Status Update Call #1 1st call regarding the status of the initial request. Best contact number: [phone] (home) Optimal time of day to reach caller: ANYTIME Additional comments/information from caller: None Note: Please do not reply to this message. Follow-up communication and further actions as a result of this message need to be communicated with the patient directly, if the patient is not active onMyChart. If the patient is active on MyChart, they will receive notification of the communication/outcome via [employer]. * Telephone Encounter - Gris Bueno - 07/13/2025 10:51 AM EDT Clinical Concern/Question Reason for Call: Pt called, asking about status of referral. Asking for a call back. Thanks! Best contact number: [phone] (home) Optimal time of day to reach caller: ANYTIME Additional comments/information from caller: None Note: Please do not reply to this message. Follow-up communication and further actions as a result of this message need to be communicated with the patient directly, if the patient is not active onMyChart. If the patient is active on MyChart, they will receive notification of the communication/outcome via [employer]. documented in this encounter Plan of Treatment Not on file documented as of this encounter Visit Diagnoses Not on filedocumented in this encounter
--- OUTSIDE RECORDS SUMMARY | 2025-07-26 01:43 | XMS_ITS | Clinical Summary ---
Author Organization Healthcare Address [address] [id number] Care Team Providers Care Family Practice Physician Assistant Name Role Phone Unavailable Primary Care Provider Unavailabl e Encounters Date Type Department Care Team Description 07/19/2025 Orders Only [facility]rology [address] [place] [address] Deyvi Grier MD Retroperitoneal bleed (Primary Dx) 07/13/2025 Telephone [facility]rology [address] [place] [address] 06/24/2025 Orders Only External Location [address] [place] [address] Deyvi Lin MD from Last 3 Months Social History Tobacco Use Types Packs/Day Years Used Date Smoking Tobacco: Never Assessed Sex and Gender Information Value Date Recorded Sex Assigned at Not on file Legal Sex Male 2:26 PM EDT Gender Identity Not on file Sexual Orientation Not on file Plan of Treatment Health Maintenance Due Date Last Done Comments [facility]-Depression Screening 1957 [facility]-Hepatitis C Screening 1957 [facility]Medicare Annual Wellness (AWV) 1957 [facility]/Child/Adol SDOH Screenings 1955 [facility]- SDOH Screenings 12/28/1975 [facility]-Adult SDOH Screenings 12/28/1975 [facility]-DTaP,Tdap,and Td Vaccine s (1 - Tdap) 1976 CT Colonography 2002 Colonoscopy 2002 FIT-DNA 2002 FIT 2002 FOBT 2002 Sigmoidoscopy 2002 [facility]-Colorectal Cancer Screening 2002 [facility]-Pneumococcal Vaccine: 50 + Years (1 of 1 - PCV) 12/28/2007 [facility]-Zoster Vaccines (1 of 2) 12/28/2007 [facility]N-CBRGM-10 Vaccine (1 - 20 24-25 season) 2025 [facility]-Influenza Vaccine (#1) 2025 [facility]-RSV Vaccine: 60+ Years o r (1 - 1-dose 75+ series) 2032 [facility]-Hepatitis A Vaccines Aged Out 10/06/2018 No longer eligible based on patient's age to complete this topic HPV Vaccines Aged Out No longer eligi ble based on patient's age to complete this topic [facility]-HIB Vaccines Aged Out No longer e ligible based on patient's age to complete this topic [facility]-IPV Vaccines Aged Out No longer e ligible based on patient's age to complete this topic [facility]-Rotavirus Vaccines Aged Out No lo nger eligible based on patient's age to complete this topic Procedures Procedure Name Priority Date/Time Associated Diagnosis Comments CT OUTSIDE IMAGES 06/24/2025 2:06 PM EDT from Last 3 Months Results * CT OUTSIDE IMAGES (06/24/2025 2:06 PM EDT) Anatomical Region Laterality Modality Computed Tomogra phy 06/24/2025 2:06 PM EDT Deyvi Lin MD IMG CT PROCEDURES Edited Result - Final from Last 3 Months Insurance MEDICARE
--- OUTSIDE RECORDS SUMMARY | 2025-07-26 01:43 | XMS_ITS | Encounter Summary ---
Author Organization Healthcare Address [address] [place] [address] Care Team Providers Care Medical Receptionist Assistant Name Role Phone Unavailable Primary Care Provider Unavailabl e Encounter Details Date Type Department Care Team (Late st Contact Info) Description 06/24/2025 Orders Only External Location [address] [place] [address] Deyvi Lin MD [address] [place] [address] Social History Tobacco Use Types Packs/Day Years Used Date Smoking Tobacco: Never Assessed Sex and Gender Information Value Date Recorded Sex Assigned at Not on file Legal Sex Male 2:26 PM EDT Gender Identity Not on file Sexual Orientation Not on file documented as of this encounter Plan of Treatment Not on file documented as of this encounter Procedures Procedure Name Priority Date/Time Associated Diagnosis Comments CT OUTSIDE IMAGES 06/24/2025 2:06 PM EDT documented in this encounter Results * CT OUTSIDE IMAGES (06/24/2025 2:06 PM EDT) Anatomical Region Laterality Modality Computed Tomogra phy 06/24/2025 2:06 PM EDT us Deyvi Lin MD IMG CT PROCEDURES Edited Result - Final documented in this encounter Visit Diagnoses Not on filedocumented in this encounter
--- OUTSIDE RECORDS SUMMARY | 2025-07-26 01:43 | XMS_ITS | Encounter Summary ---
Author Organization Healthcare Address [address] [place] [address] Care Team Providers Care Front Desk Receptionist Name Role Phone Unavailable Primary Care Provider Unavailabl e Encounter Details Date Type Department Care Team ([facility] st Contact Info) Description 09/02/2024 Orders Only External Location [address] [place] [address] Provider, External Social History Tobacco Use Types Packs/Day Years [...] Procedure Name Priority Date/Time Associated Diagnosis Comments US OUTSIDE IMAGES 09/02/2024 2:07 PM EST documented in this encounter Results * US OUTSIDE IMAGES (09/02/2024 2:07 PM EST) Anatomical Region Laterality Modality Ultrasound 09/02/2024 2:07 PM EST us External Provider IMG US PROCEDURES Edited Resul t - Final documented in this encounter Visit Diagnoses Not on filedocumented in this encounter
== END 2025-07-25 23:59 ==
LOC: LAB.DROPOF 07-26 01:42
PROVIDERS: PCP Internal Medicine; Visit Provider Internal Medicine
DX: D62 Acute posthemorrhagic anemia (principal)
CPT/HCPCS: 85025

== ENCOUNTER 2025-09-26 11:08 | Outpatient (CLI) | payer MEDICARE, OTHER, SELFPAY ==
[2025-09-26 11:49] LABS: Hematocrit 40.1 % (42.0-52.0); Hemoglobin 13.5 g/dL (14.1-18.0); Immature Granulocytes % 0.3 %; Mean Corpuscular HGB Conc 33.7 g/dL (31.8-35.4); Mean Corpuscular Hemoglobin 31.1 pg (27.0-31.2); Mean Corpuscular Volume 92.4 fl (80-94); Nucleated Red Blood Cells % 0 %; Platelet Count 151 K/mm3 (142-424); Red Blood Count 4.34 M/mm3 (4.60-6.20); Red Cell Distribution Width-SD 45.2 fL; White Blood Count 3.3 K/mm3 (4.8-10.8)
[2025-09-26 14:59] LABS: Microscopic, Urine URINE MICROSCOPIC (MICROSCOPIC)
[2025-09-26 15:20] LABS: Bilirubin,Urine Negative (Negative); Color,Urine YELLOW (Yellow); Glucose,Urine (UA) Negative (Negative); Ketones,Urine Negative (Negative); Leukocyte Esterase,Urine Negative (Negative); PH,Urine 6.0 (5.0-8.5); Protein,Urine Negative (Negative); Specific Gravity, Urine 1.025 (1.005-1.030); Urobilinogen,Urine 0.2 EU/dl (0.2)
[2025-09-26 15:29] LABS: Bacteria,Urine Trace /lpf
[2025-09-26 19:45] LABS: Hematocrit 42.1 % (42.0-52.0); Hemoglobin 13.6 g/dL (14.1-18.0); Immature Granulocytes % 0.3 %; Mean Corpuscular HGB Conc 32.3 g/dL (31.8-35.4); Mean Corpuscular Hemoglobin 30.4 pg (27.0-31.2); Mean Corpuscular Volume 94.2 fl (80-94); Nucleated Red Blood Cells % 0 %; Platelet Count 154 K/mm3 (142-424); Red Blood Count 4.47 M/mm3 (4.60-6.20); Red Cell Distribution Width-SD 47.2 fL; White Blood Count 3.3 K/mm3 (4.8-10.8)
[2025-09-26 20:58] LABS: Anion Gap 13.4 mEq/L (5-15); Blood Urea Nitrogen 21 mg/dl (9-20); Calcium 9.0 mg/dl (8.4-10.2); Carbon Dioxide 25 mmol/L (22.0-30.0); Chloride 106 mmol/L (98-107); Creatinine Clearance Estimated 129 mL/min (50-200); Creatinine,Serum 1.00 mg/dl (0.66-1.25); Estimated Glomerular Filt Rate 75 ml/min (>60); GFR (African American) 90 ML/MIN (>60); Glucose 111 mg/dl (74-100); Potassium 4.4 mmoL/L (3.5-5.1); Sodium 140 mmol/L (136-145)
[2025-09-26 21:41] LABS: Thyroid Stimulating Hormone 2.56 uIU/mL (0.465-4.68)
[2025-09-27 05:01] LABS: Testosterone,Total 355 ng/dL (264-916)
== END 2025-09-26 23:59 | disposition home or self-care (01) ==
LOC: LAB 11:09
PROVIDERS: PCP Internal Medicine; Visit Provider Urology
DX: N40.1 Benign prostatic hyperplasia with lower urinary tract symptoms (principal); N32.81 Overactive bladder; R97.20 Elevated prostate specific antigen [PSA]; R32 Unspecified urinary incontinence; D62 Acute posthemorrhagic anemia; R53.83 Other fatigue
CPT/HCPCS: 36415; 80048; 81001; 84270; 84403; 84443; 85025